=== PATIENT | female | born 1965 | race Caucasian/White ===

== ENCOUNTER 2017-02-19 05:00 | Emergency (ER) | payer OTHER ==
[~2017-02-19] VITALS: Ht 154.9 cm; Wt 99.8 kg
[~2017-02-19 05:00] MED LIST: CHANTIX1 MG PO; NICOTINE PATCH1 EAC3 TOP; PROTONIX40 M3 PO
--- NOTE | 2017-02-19 05:23 | ED GI/GU/ABDOMINAL COMPLAINT ---
History of Present Illness General Chief Complaint: Abdominal Pain/Flank Pain Stated Complaint: "I THINK HAVING GALLBLADDER ATTACK" Source: patient, old records Exam Limitations: no limitations Vital Signs & Intake/Output Vital Signs & Intake/Output Vital Signs Date Time Temp Pulse Resp B/P B/P Pulse O2 O2 Flow FiO2 Mean Ox Delivery Rate 02/19 0718 96.0 02/19 0718 96.1 80 20 115/70 96 Room Air 02/19 0629 Room Air 02/19 0508 96.0 94 16 98 Room Air Room Air Allergies Coded Allergies: grape (GI UPSET 02/18/17) turkey (gi upset 02/18/17) Triage Note: 51yo FEMALE TO TRIAGE W/CO ABD PAIN AND VOMITING X 1 THIS AM. STATES SHE WAS SEEN HERE LAST WEEK FOR SAME SX Triage Nurses Notes Reviewed? yes LMP (ages 10-50): post menopausal ? n Is pt currently ? No Onset: Just prior to arrival Duration: hour(s):, constant, continues in ED Timing: recent history Quality/Severity: aching, moderate, throbbing, vomiting Location: epigastric, right upper quadrant Radiation: LLQ, RLQ Activities at Onset: rest Prior Abdominal Problems: none Past Sexual History: Unobtainable at this time Modifying Factors: Worsens With: palpation. Associated Symptoms: abdominal pain, loss of appetite, nausea/vomiting HPI: Several hours prior to admission patient complains of aching epigastric right upper quadrant discomfort moderate to severe constant with radiation to bilateral lower quadrants associated with nausea vomiting. She denies fever chills chest pain cough shortness of breath headache dysuria rash bleeding. (MARGIE TONEY,CAMILA) Reconcile Medications Diphenhydramine HCl (Benadryl) 25 MG CAPSULE 1 CAP PO QPM SLEEP (Reported) Nicotine (Nicotine Patch) 21 MG/24 HOUR PATCH.TD24 1 PAT TOP DAILY SMOKING CESSATION (Reported) Pantoprazole Sodium (Protonix) 40 MG TABLET.DR 1 TAB PO DAILY GERD (Reported) Varenicline Tartrate (Chantix) 1 MG TABLET 1 TAB PO QPM SMOKING (Reported) (LYNSEY TONEY,LOTUS) Past History Travel History Traveled to [place] past 21 day No Medical History Any Pertinent Medical History? see below for history Cancer(s): ANAL CANCER Surgical History Surgical History: non-contributory Psychosocial History What is your primary language Indonesian Tobacco Use: Current Daily Use Daily Tobacco Use Amount/Type: => 5 Cigarettes daily Family History Hx Contributory? No (CAMILA HANSON MD) Review of Systems Review of Systems Constitutional: Reports: see HPI, malaise. EENTM: Reports: no symptoms. Respiratory: Reports: no symptoms. Cardiovascular: Reports: no symptoms. GI: Reports: see HPI, abdominal pain, nausea, vomiting. Genitourinary: Reports: no symptoms. Musculoskeletal: Reports: no symptoms. Skin: Reports: no symptoms. Neurological/Psychological: Reports: no symptoms. Hematologic/Endocrine: Reports: no symptoms. Immunologic/Allergic: Reports: no symptoms. All Other Systems: Reviewed and Negative (CAMILA HANSON MD) Physical Exam Physical Exam General Appearance: well developed/nourished, alert, awake, anxious, moderate distress, obese Head: atraumatic, normal appearance Eyes: Bilateral: normal appearance, PERRL, EOMI, normal inspection. Ears, Nose, Throat, Mouth: hearing grossly normal, moist mucous membrane Neck: normal inspection, supple, full range of motion, normal alignment Respiratory: normal breath sounds, chest non-tender, no respiratory distress, quiet respiration, lungs clear Cardiovascular: regular rate/rhythm, normal peripheral pulses, norml femoral pulses equa Peripheral Pulses: 4+ carotid (R), 4+ carotid (L) Gastrointestinal: normal bowel sounds, soft, no organomegaly, tenderness (mild right upper quadrant) Back: normal inspection, normal range of motion Extremities: normal range of motion, no ligament instability Neurologic/Psych: no motor/sensory deficits, awake, alert, oriented x 3, normal gait, normal mood/affect, seo consultant II-XII nml as tested Skin: intact, normal color, warm/dry Core Measures ACS in differential dx? No Severe Sepsis Present: No Septic Shock Present: No (CAMILA HANSON MD) Progress Differential Diagnosis: biliary colic, kidney stone, PUD/GERD, UTI/pyelo Plan of Care: Orders Procedure Date/time Status LIPASE 02/19 522 Complete COMPREHENSIVE METABOLIC PANEL 02/19 522 Complete CBC WITHOUT DIFFERENTIAL 02/19 522 Complete EKG 02/19 522 Active Laboratory Tests 02/19/17 0536: Anion Gap 10, Estimated GFR > 60, BUN/Creatinine Ratio 22.5, Glucose 155 H, Calcium 9.6, Total Bilirubin 0.6, AST 23, ALT 42, Alkaline Phosphatase 168 H, Total Protein 7.8, Albumin 4.2, Globulin 3.6, Albumin/Globulin Ratio 1.2, Lipase 145, CBC w Diff NO MAN DIFF REQ, RBC 5.21, MCV 88.7, MCH 29.6, RDW 14.3, MPV 7.3 L, Gran % 80.4 H, Lymphocytes % 11.7 L, Monocytes % 6.4, Eosinophils % 1.3, Basophils % 0.2, Absolute Granulocytes 7.9 H, Absolute Lymphocytes 1.1 L, Absolute Monocytes 0.6, Absolute Eosinophils 0.1, Absolute Basophils 0, PUBS MCHC 33.4 02/19/17 0522: PT Cancelled, INR Cancelled 02/19/2017 7:19:17 AM Patient signed out to me by Dr. Hanson. Pending right upper quadrant ultrasound results. Ultrasound is negative for acute cholecystitis but does show positive gallstone and wall thickening. No pain on examination at this time. LFTs and white blood cell count within normal limits. Patient will follow-up with Dr. Gil in the office. Copy of labs and ultrasound results given to her. She will be following up with her primary care doctor later on today as well as with Dr. MCCORMACK next week regarding recent blood work. (LOTUS MENON MD) Initial ED EKG: normal axis, normal intervals, normal p-waves, normal QRS complex, normal sinus rhythm, nonspecific ST T wave chg Prior EKG: unchanged Rhythm Strip: normal sinus rhythm Hand-Off Endorsed To: LOTUS MENON MD Endorsed Time: 0700 Pending: ultrasound (CAMILA HANSON MD) Diagnostic Imaging: Viewed by Me: Ultrasound. Discussed w/RAD: Ultrasound. Radiology Impression: PATIENT: ISMA TREVINO PRESENT AGE: 51 PATIENT ACCOUNT NO: [id number] : 65 LOCATION: [facility] ORDERING PHYSICIAN: CAMILA HANSON MD SERVICE DATE: 02/19/17 EXAM TYPE: US - US- LIMITED ABDOMEN EXAMINATION: US ABDOMEN LIMITED CLINICAL INFORMATION: Biliary colic. COMPARISON: CT abdomen pelvis from 02/15/2017. TECHNIQUE: Real-time imaging of the right upper quadrant abdominal viscera. FINDINGS: PANCREAS: Normal. LIVER: Normal. The liver demonstrates normal size, contour and echogenicity. No focal lesion or intrahepatic biliary duct dilatation. GALLBLADDER: There is cholelithiasis. There is a 2 cm calculus in the gallbladder neck. This is nonmobile. There is mild gallbladder wall thickening. Some echogenic foci in the nondependent position adjacent to the gallbladder wall may represent cholesterolosis. There is no fluid in the gallbladder wall and there is no pericholecystic fluid. There is a phrygian cap incidentally noted. The gallbladder is normally distended. The patient is not tender over the gallbladder at this time. COMMON BILE DUCT: Normal in caliber measuring 0.5 cm in diameter. No choledocholithiasis is seen RIGHT KIDNEY: Right kidney is normal in size cortical thickness and echogenicity. No hydronephrosis. No renal calculi or focal parenchymal lesions. The kidney measures 11.0 cm in maximum dimension. FREE FLUID: None. IMPRESSION: There is cholelithiasis with a 2 cm stone, possibly impacted, in the gallbladder neck. There is mild gallbladder wall thickening and possible cholesterolosis. This may reflect chronic or subacute cholecystitis. The patient is not tender at this time and there is no pericholecystic fluid or other findings to indicate acute cholecystitis. No biliary ductal dilatation. No other finding. DICTATED BY: VALENCIA LEZAMA MD DATE/TIME DICTATED:02/19/17813 ROUTE CLERK:CHRIS DATE/TIME TRANSCRIBED:02/19/17813 CONFIDENTIAL, DO NOT COPY WITHOUT APPROPRIATE AUTHORIZATION. <Electronically signed in Other Vendor System> SIGNED BY: VALENCIA LEZAMA MD 02/19/17 0824 (LOTUS MENON MD) Departure Departure Condition: Stable Departure Forms: Customer Survey General Discharge Information (MARGIE TONEY,CAMILA) Departure Time of Disposition: 837 Disposition: HOME OR SELF CARE Clinical Impression Primary Impression: Biliary colic Referrals: JAYLA TONEY,SABRA (PCP/Family) EASTON TONEY,IRWIN GIL MD,BEA N. Additional Instructions: FOLLOW UP WITH DR GIL IN THE OFFICE REGARDING YOUR ULTRASOUND RESULTS. BLAND DIET DISCUSSED. TYLENOL NEEDED FOR PAIN. RETURN TO THE ER FOR WORSENING PAIN, FEVER, NAUSEA OR VOMITING. ALSO FOLLOW UP WITH DR MCCORMACK REGARDING YOUR TESTING. (LOTUS MENON MD)
[2017-02-19 05:59] LABS: ABSOLUTE BASOPHIL COUNT 0 /CUMM (0.0-0.2); ABSOLUTE EOSINOPHIL COUNT 0.1 /CUMM (0.0-0.7); ABSOLUTE GRANULOCYTE CT 7.9 /CUMM (1.4-6.5); ABSOLUTE LYMPH COUNT 1.1 /CUMM (1.2-3.4); ABSOLUTE MONOCYTE COUNT 0.6 /CUMM (0.10-0.60); BASOPHIL % 0.2 % (0.0-2.0); EOSINOPHIL % 1.3 % (0-5); GRANULOCYTE % 80.4 % (42.2-75.2); HEMATOCRIT 46.2 % (37-47); MEAN CORPUSCULAR HGB 29.6 PG (27.0-31.0); MEAN CORPUSCULAR HGB CONC 33.4 G/DL (33.0-37.0); MEAN CORPUSCULAR VOLUME 88.7 FL (81.0-99.0); MEAN PLATELET VOLUME 7.3 FL (7.4-10.4); PLATELET COUNT 313 /CUMM (130-400); RBC DISTRIBUTION WIDTH 14.3 % (11.5-14.5); RED BLOOD CELL CT 5.21 /CUMM (4.20-5.40); WHITE BLOOD CELL COUNT 9.8 /CUMM (4.8-10.8)
[2017-02-19 07:18] VITALS: BP 115/70
--- NOTE | 2017-02-19 08:24 | ULTRASOUND REPORT ---
EXAMINATION: US ABDOMEN LIMITED CLINICAL INFORMATION: Biliary colic. COMPARISON: CT abdomen pelvis from 02/15/2017. TECHNIQUE: Real-time imaging of the right upper quadrant abdominal viscera. FINDINGS: PANCREAS: Normal. LIVER: Normal. The liver demonstrates normal size, contour and echogenicity. No focal lesion or intrahepatic biliary duct dilatation. GALLBLADDER: There is cholelithiasis. There is a 2 cm calculus in the gallbladder neck. This is nonmobile. There is mild gallbladder wall thickening. Some echogenic foci in the nondependent position adjacent to the gallbladder wall may represent cholesterolosis. There is no fluid in the gallbladder wall and there is no pericholecystic fluid. There is a phrygian cap incidentally noted. The gallbladder is normally distended. The patient is not tender over the gallbladder at this time. COMMON BILE DUCT: Normal in caliber measuring 0.5 cm in diameter. No choledocholithiasis is seen RIGHT KIDNEY: Right kidney is normal in size cortical thickness and echogenicity. No hydronephrosis. No renal calculi or focal parenchymal lesions. The kidney measures 11.0 cm in maximum dimension. FREE FLUID: None. IMPRESSION: There is cholelithiasis with a 2 cm stone, possibly impacted, in the gallbladder neck. There is mild gallbladder wall thickening and possible cholesterolosis. This may reflect chronic or subacute cholecystitis. The patient is not tender at this time and there is no pericholecystic fluid or other findings to indicate acute cholecystitis. No biliary ductal dilatation. No other finding.
[2017-02-19] MEDS ORDERED: BENADRYL25 MG PO (08:41)
== END 2017-02-19 08:52 ==
LOC: ERH 05:00
PROVIDERS: Emergency Medicine
DX: K80.50 Calculus of bile duct without cholangitis or cholecystitis without obstruction (principal)
CPT/HCPCS: 93005; 93010; 96361; 96374; 96375; J0131; J1885; J2405

== ENCOUNTER → 2017-09-02 | Day surgery (SDC) | payer OTHER ==
[~2017-09-02] VITALS: Ht 154.9 cm; Wt 104.3 kg
[~2017-09-02] MED LIST changes: +ACETAMINOPHEN500 M4 PO; +ALBUTEROL2.5 MG/3 M INH/SOL; +BENADRYL25 MG PO; +BREO ELLIPTA 21 EACH INH; +CHERATUSSIN AC118 M1 PO; +DOCUSATE SODIU100 M3 PO; +MEDROL4 M2 PO; +PERCOCET 5-3251 EACH PO; +PROAIR HFA8.5 GM INH; +SPIRIVA18 MCG INH; +VESICARE5 M1 PO; +VICKS NYQUIL C354 M1 PO; +ZITHROMAX250 M2 PO; +ZOFRAN4 M2 PO
--- NOTE | 2017-09-02 15:01 | RADIOLOGY REPORT ---
EXAMINATION: XR PORTABLE CHEST CLINICAL INFORMATION: Status post-post bronchoscopy. COMPARISON: Prior chest radiographs, most recently 09/02/2017; CT thorax dated 07/27/2017.. TECHNIQUE: Portable frontal view of the chest was obtained. FINDINGS: There is stable cardiomegaly. There is no pulmonary vascular congestion or overt congestive heart failure. A known paratracheal mass is redemonstrated. There is persistent right hilar prominence. There is patchy airspace disease inferiorly within the right lower lobe, increased from 08/23/2017. There are underlying emphysematous changes. No pleural effusion or pneumothorax is seen. There is no acute osseous abnormality. IMPRESSION: 1. There are persistent right paratracheal and right perihilar densities, consistent with adenopathy. Please correlate with bronchoscopy findings. 2. There is increased patchy airspace disease in the lower right upper lobe. 3. There are underlying emphysematous changes. 4. No pneumothorax is seen status-post right bronchoscopy.
--- NOTE | 2017-09-02 15:45 | Operative Report ---
Operative/Inv Procedure Report Surgery Date: 09/02/17 Name of Procedure: Navigational bronchoscopy with transbronchial needle biopsy and bronchoalveolar lavage Pre-Operative Diagnosis: Right upper lobe lung nodule with mediastinal lymphadenopathy Post-Operative Diagnosis: Metastatic non-small cell cancer Estimated Blood Loss: scant Surgeon/Fagot Maker: Dr. Sugey Valenzuela Jr., MD,Sg Zamora Anesthesia: general endotracheal tube Operative/Procedure Note Note: After placement of monitoring lines and induction of general anesthesia survey bronchoscopy was done. There were some thin secretions found but no evidence of any endobronchial abnormalities. The navigational system was then registered. We started with trans-bronchial biopsy of the subcarinal lymph nodes. Multiple passes of the Hawkins needle were made in the specimens were sent for rapid analysis. The target in the right upper lobe was then identified and multiple attempts were made to pass the catheter to this mass in the anterior segment of the right upper lobe it was unsuccessful because of the patient's endobronchial anatomy. Bronchoalveolar lavage was done and the fluid was sent for cytology evaluation. The rapid analysis of the subcarinal lymph node came back and it showed evidence of metastatic non-small cell cancer. Given these findings that were diagnostic a mediastinoscopy was not done. There was good hemostasis. The patient tolerated the procedure well and was brought to the recovery room awake and extubated in stable condition. CC: Teddy TONEY,Randy Smith; Sugey TONEY,Shantanu
--- NOTE | 2017-09-02 19:23 | RADIOLOGY REPORT ---
EXAMINATION: INTRAOPERATIVE FLUOROSCOPIC GUIDANCE AND CHEST CLINICAL INFORMATION: Bronchoscopy. Biopsy. COMPARISON: 08/23/2017. TECHNIQUE: Fluoroscopic time was utilized in the OR for Dr. Valenzuela. Fluoroscopic images were obtained in the AP projection. FINDINGS: Fluoroscopic guidance was provided to Dr. Valenzuela during right bronchoscopy. FLUOROSCOPY TIME: 30 seconds of fluoroscopic time was utilized for the entirety of this examination. IMPRESSION: Fluoroscopic guidance was provided to Dr. Valenzuela during right bronchoscopy.
== END ==
LOC: STS 08-26 02:20
DX: C77.1 Secondary and unspecified malignant neoplasm of intrathoracic lymph nodes (principal); J44.9 Chronic obstructive pulmonary disease, unspecified; Z85.048 Personal history of other malignant neoplasm of rectum, rectosigmoid junction, and anus; Z87.891 Personal history of nicotine dependence; I10 Essential (primary) hypertension; R59.0 Localized enlarged lymph nodes
CPT/HCPCS: 1263; 71045; 88305; C9399; J2250

== ENCOUNTER → 2017-10-29 | Day surgery (SDC) | payer OTHER ==
[~2017-10-29] VITALS: Ht 154.9 cm; Wt 104.3 kg
[~2017-10-29] MED LIST changes: +CALCIUM600 M3 PO; +TURMERIC500 M2 PO; +VITAMIN D2000 UNIT PO
--- NOTE | 2017-10-29 15:52 | Operative Report ---
Operative/Inv Procedure Report Surgery Date: 10/29/17 Name of Procedure: Right-sided axillary vein Port-A-Cath placement with ultrasound and fluoroscopic guidance Pre-Operative Diagnosis: Lung cancer Post-Operative Diagnosis: Same Estimated Blood Loss: scant Surgeon/Director Learning And Development: Joseph TONEY,Irving Wharton Anesthesia: local monitored anesthesi Implants: Bard power port Operative Indication: Patient presents with locally advanced lung cancer. Port-A-Cath placement to facilitate chemotherapy Operative/Procedure Note Note: Patient brought to the operating room and laid supine. Her arm tucked and a roll placed behind the shoulder. His right chest and neck were then prepped and draped. She was sedated. Using ultrasound imaging the right axillary vein was visualized and percutaneously accessed after local anesthesia placed. A wire was placed on the right atrium. Confirmation with fluoroscopic imaging was performed. The right chest was then infiltrated further with local anesthesia an incision made over the wire. An inferiorly based pocket was created with blunt and cautery dissection. The port was placed into the pocket and the catheter measured under fluoroscopic imaging. It was trimmed to 22 cm. Using fluoroscopy the dilator was placed down into the SVC. The wire was removed and passed off the field. The catheter was placed through the peel-away sheath. Sheath was then removed. Final fluoroscopic images show the catheter in the atrial SVC junction. The catheter was aspirated and flushed with concentrated heparin. The port was anchored to the deep subcutaneous tissues tissues with 0 Vicryl suture. The skin was closed with 3-0 and 4-0 Vicryl. Steri-Strips and sterile dressing applied. Sponge and needle counts are correct. CC: Guillermina TONEY,Michelle Espinal MD,Randy Smith; Bianca Pugh MD,Sg Zamora
--- NOTE | 2017-10-29 16:53 | RADIOLOGY REPORT ---
EXAMINATION: XR PORTABLE CHEST CLINICAL INFORMATION: Postoperative right chest Port-A-Cath. COMPARISON: 09/02/2017 TECHNIQUE: Portable frontal view of the chest was obtained. FINDINGS: There is a right chest wall CT compatible port which terminates near the cavoatrial junction. Low lung volumes. There is a right peripheral midlung airspace opacity. No pleural effusion or pneumothorax. The cardiomediastinal silhouette is unchanged. IMPRESSION: Right chest wall port which terminates near the cavoatrial junction. No pneumothorax. Peripheral right midlung airspace opacity which could represent pneumonia.
--- NOTE | 2017-10-29 18:02 | RADIOLOGY REPORT ---
EXAMINATION: XR PORTABLE CHEST CLINICAL INFORMATION: Bronchospasm status post port insertion. COMPARISON: Radiograph from earlier today TECHNIQUE: Portable frontal view of the chest was obtained. FINDINGS: Right chest wall port again noted. There is persistent peripheral right midlung airspace opacity. The left lung is clear. No pneumothorax. The cardiomediastinal silhouette is unchanged. IMPRESSION: No change from recent prior. Peripheral right midlung airspace opacity which may represent pneumonia.
--- NOTE | 2017-10-29 19:29 | Cons- Pulmonary ---
General Information and HPI Consulting Request Date of Consult: 10/29/17 Requested By: med team and sug team History of Present Illness: Pt with history of lung cancer came in for a port placement for chemo Sub to the procedure she developed chest discomfort and sig cough and mild hypoxia and hence this consult When i saw her she was stable and coughing had subsided Mild hypoxia with a sat o 92 noted on room air No hemoptysis or any sputum Has copd Previous anal cancer now has NSCLCA with sig abnormality in the pet Allergies/Medications Allergies: Coded Allergies: onion (DIARRHEA 08/21/17) grape (DIARRHEA 06/10/17) turkey (DIARRHEA 06/10/17) Home Med List: Acetaminophen 500 MG TABLET 1 TAB PO PRN PAIN (Reported) Albuterol Sulfate (Proair Hfa) 90 MCG HFA.AER.AD 2 PUF INH PRN COPD (Reported ) Albuterol Sulfate 2.5 MG/3 ML (0.083 %) VIAL.NEB 1 Vial INH/MIRLANDE BID COPD ( Reported) Calcium (Elemental-Fr Calcarb) (Calcium) (Unknown Strength) TABLET (Unknown Dose) PO DAILY SUPPLEMENT (Reported) Cholecalciferol (Vitamin D3) (Vitamin D) (Unknown Strength) CAPSULE (Unknown Dose) PO DAILY SUPPLEMENT (Reported) Fluticasone/Vilanterol (Breo Ellipta 200-25 Mcg INH) 200 MCG-25 MCG/DOSE BLST.W.DEV 1 PUFF INH DAILY COPD (Reported) Solifenacin Succinate (Vesicare) 5 MG TABLET 1 TAB PO DAILY BLADDER (Reported ) Turmeric Root Extract (Turmeric) (Unknown Strength) CAPSULE (Unknown Dose) PO DAILY SUPPLEMENT (Reported) Review of Systems Review of Systems Constitutional: Reports: see HPI. 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 Peripheral right midlung airspace opacity which may represent pneumonia. DICTATED BY: Fritz TONEY,Justen Pt with advanced lung cancer came in for the port now with post op Sig coughing spell now resolved - related to the procedure Sig advanced lung cancer with upper lobe rt sided alveolar filling process consistant with malignancy - with prob lymphantitic spread PT back to base line stable Ok to dc no abx for now to follow with onc and Dr. Mayes Pt to call if she has fever or purulent sputum Consult Acknowledgment - Thank you for your consult request.
--- NOTE | 2017-10-30 15:32 | RADIOLOGY REPORT ---
EXAMINATION: CR ABDOMEN/INTRAOPERATIVE FLUOROSCOPY CLINICAL INDICATION: Port-A-Cath insertion. COMPARISON: Chest x-ray dated 09/02/2017. TECHNIQUE/FINDINGS: Fluoroscopic equipment was dedicated to the operating room for the performance of an intraoperative procedure. Several (8) spot films were acquired and are archived in PACS. Please refer to operative notes for procedural detail. FLUOROSCOPY TIME: 0.28 seconds. IMPRESSION: Administrative dictation for intraoperative fluoroscopy and image archiving in PACS. Please refer to operative notes for details.
== END ==
LOC: STS 03:15
DX: C34.90 Malignant neoplasm of unspecified part of unspecified bronchus or lung (principal); J44.9 Chronic obstructive pulmonary disease, unspecified; Z87.891 Personal history of nicotine dependence; Z85.048 Personal history of other malignant neoplasm of rectum, rectosigmoid junction, and anus; I10 Essential (primary) hypertension; K21.9 Gastro-esophageal reflux disease without esophagitis
CPT/HCPCS: 1263; 1387; 71045; 94799; C1788; J0690; J1644